=== PATIENT | female | born 1925 | race African-American/Black ===

== ENCOUNTER 2016-09-03 11:17 | Emergency (ER) | payer OTHER ==
[~2016-09-03] VITALS: Ht 170.2 cm; Wt 90.6 kg
[2016-09-03 11:36] VITALS: BP 120/67; PULSE 62; RESP 18; TEMP 98.6; O2SAT 100
[2016-09-03] MEDS ORDERED: SODIUM CHLORIDE 0.9% FLUSH 5 ML FLUSH IVF PRN (12:30)
--- NOTE | 2016-09-03 12:49 | PD ---
HPI . Tremors Chief Complaint: Numbness/Tingling Time Seen by Provider: 12:28 Travel History International Travel<30 days: No Contact w/Intl Traveler<30days: No Traveled to known affect area: No History of Present Illness HPI Patient presents with about a 10 minute history of tremors that occurred at breakfast time this morning. Her symptoms have completely resolved. She denies any associated symptoms. She denies any previous similar history. FORMERLY [facility], [facility] Past Medical History Cardiovascular Problems: Yes Diabetes: Yes Patient Takes Glucophage: No (UNKNOWN) Influenza Vaccination: Yes ?: Not Past Surgical History Surgical History: No Previous Surgery Social History Alcohol Use: No Tobacco Use: No Substance Use: No Allergies-Medications (Allergen,Severity, Reaction): Coded Allergies: No Known Allergies (Unverified , 09/03/16) Review of Systems Except as stated in HPI: all other systems reviewed are Neg General / Constitutional: No: Fever, Chills Eyes: No: Diploplia, Blurred Vision HENT: No: Headaches, Lightheadedness Cardiovascular: No: Chest Pain or Discomfort, Palpitations Respiratory: No: Shortness of Breath Gastrointestinal: No: Nausea, Vomiting Musculoskeletal: No: Weakness Neurologic: Positive: Tremor, No: Weakness, Dizziness, Syncope, Focal Abnormalities, Headache, Change in Mentation, Slurred Speech, Paresthesia, Incontinence, Seizures Physical Exam Narrative GENERAL: Healthy-appearing 89-year-old woman who is in no acute distress. SKIN: Warm and dry. HEAD: Atraumatic. Normocephalic. EYES: Pupils equal and round. ENT: No nasal bleeding or discharge. Mucous membranes pink and moist. NECK: Trachea midline. Neck supple. CARDIOVASCULAR: Regular rate and rhythm. Heart sounds are normal. RESPIRATORY: No accessory muscle use. Lungs are clear with full air movement throughout. GASTROINTESTINAL: Abdomen soft, non-tender, nondistended. MUSCULOSKELETAL: No obvious deformities. No edema. NEUROLOGICAL: Awake and alert. No obvious cranial nerve deficits. Motor grossly within normal limits. Normal speech. PSYCHIATRIC: Appropriate mood and affect; insight and judgment normal. Data Data Last Documented VS Vital Signs Date Time Temp Pulse Resp B/P Pulse Ox O2 Delivery O2 Flow Rate FiO2 09/03/16 13:51 18 94 Room Air 09/03/16 13:51 74 118/66 09/03/16 11:36 98.6 Orders Electrocardiogram (09/03/16 12:28) Complete Blood Count With Diff (09/03/16 12:28) Basic Metabolic Panel (Bmp) (09/03/16 12:28) Urinalysis - C+S If Indicated (09/03/16 12:28) Ct Brain W/O Iv Contrast(Rout) (09/03/16 12:28) Ecg Monitoring (09/03/16 12:28) Iv Access Insert/Monitor (09/03/16 12:28) Oximetry (09/03/16 12:28) Sodium Chloride 0.9% Flush (Ns Flush) (09/03/16 12:30) Labs Laboratory Tests Test 09/03/16 09/03/16 13:05 13:30 Urine Collection Type CATH Urine Color STRAW Urine Turbidity CLEAR Urine pH 5.5 Urine Specific Cres[place] 1.010 Urine Protein NEG mg/dL Urine Glucose (UA) NEG mg/dL Urine Ketones NEG mg/dL Urine Occult Blood NEG Urine Nitrite NEG Urine Bilirubin NEG Urine Leukocyte Esterase TRACE Urine WBC 0-2 /hpf Urine Squamous Epithelial 0-5 /hpf Cells Microscopic Urinalysis Comment CULT NOT INDICATED White Blood Count 3.9 TH/MM3 Red Blood Count 3.90 MIL/MM3 Hemoglobin 11.6 GM/DL Hematocrit 34.6 % Mean Corpuscular Volume 88.9 FL Mean Corpuscular Hemoglobin 29.7 PG Mean Corpuscular Hemoglobin 33.4 % Concent Red Cell Distribution Width 13.1 % Platelet Count 213 TH/MM3 Mean Platelet Volume 8.3 FL Neutrophils (%) (Auto) 48.3 % Lymphocytes (%) (Auto) 40.8 % Monocytes (%) (Auto) 6.2 % Eosinophils (%) (Auto) 2.8 % Basophils (%) (Auto) 1.9 % Neutrophils # (Auto) 1.9 TH/MM3 Lymphocytes # (Auto) 1.6 TH/MM3 Monocytes # (Auto) 0.2 TH/MM3 Eosinophils # (Auto) 0.1 TH/MM3 Basophils # (Auto) 0.1 TH/MM3 CBC Comment DIFF FINAL Differential Comment Sodium Level 141 MEQ/L Potassium Level 4.3 MEQ/L Chloride Level 108 MEQ/L Carbon Dioxide Level 24.7 MEQ/L Anion Gap 8 MEQ/L Blood Urea Nitrogen 26 MG/DL Creatinine 1.30 MG/DL Estimat Glomerular Filtration 47 ML/MIN Rate Random Glucose 84 MG/DL Calcium Level 9.3 MG/DL MDM Medical Decision Making Medical Screen Exam Complete: Yes Emergency Medical Condition: Yes Interpretation(s) EKG shows a sinus rhythm ventricular rate of 51. She has no old EKGs for comparison. Differential Diagnosis Differential diagnosis of weakness includes but is not limited to infection, CVA , electrolyte disturbance, renal failure, hypoglycemia, UTI, ACS, acute blood loss Narrative Course Patient presents for evaluation of an episode of tremors. The episode occurred several hours ago and is completely resolved. She had no associated symptoms. Her physical exam is unremarkable. CBC & BMP Diagram 09/03/16 13:[address] 09/03/16 1228 Signed Impressions: Service Date/Time: Saturday, September 03, 2016 13:31 - CONCLUSION: 1. No acute intracranial abnormality is identified. 2. Extra-axial ossification at the right frontal high convexity measuring 1.9 cm. This may represent a calcified meningioma. However, it is not causing any significant mass effect on the surrounding structures. Caleb Walsh MD UA is negative for infection Diagnosis Primary Impression: Tremor Patient Instructions: General Instructions, Tremors (DC) Disposition: 01 DISCHARGE HOME Condition: Stable Toshia Moran MD Sep 03, 2016 12:49
[2016-09-03 13:35] LABS: AUTOMATED NEUTROPHIL # 1.9 TH/MM3 (1.8-7.7); BASOPHIL # 0.1 TH/MM3 (0-0.2); BASOPHIL % 1.9 % (0.0-2.0); EOSINOPHIL # 0.1 TH/MM3 (0-0.4); EOSINOPHIL % 2.8 % (0.0-4.0); HEMATOCRIT 34.6 % (35.0-46.0); HEMO FLAGS DIFF FINAL; LYMPH % 40.8 % (9.0-44.0); LYMPHOCYTE # 1.6 TH/MM3 (1.0-4.8); MEAN CELL VOLUME 88.9 FL (80.0-100.0); MEAN CORPUSCULAR HEMOGLOBIN 29.7 PG (27.0-34.0); MEAN CORPUSCULAR HGB CONC 33.4 % (32.0-36.0); MONO % 6.2 % (0.0-8.0); NEUT % 48.3 % (16.0-70.0); PLATELET COUNT 213 TH/MM3 (150-450); RED CELL DISTRIBUTION WIDTH 13.1 % (11.6-17.2); WHITE BLOOD COUNT 3.9 TH/MM3 (4.0-11.0)
[2016-09-03 13:37] LABS: BLOOD, URINE NEG (NEG); GLUCOSE,URINE NEG (NEG); KETONE, URINE NEG (NEG); NITRITE,URINE NEG (NEG); PH, URINE 5.5 (5.0-8.5)
[2016-09-03 13:46] LABS: POTASSIUM 4.3 MEQ/L (3.5-5.1)
[2016-09-03 13:48] LABS: COMMENT (UR) CULT NOT INDICATED; CULTURE IF INDICATED CULT NOT INDICATED; METHOD OF COLLECTION CATH; SQUAMOUS EPITHELIAL CELL URINE 0-5 /hpf (0-5); URINE COLOR STRAW (YELLW/STRAW); WBC, URINE 0-2 /hpf (0-5)
--- NOTE | 2016-09-03 13:49 | RADHPO ---
EXAM DATE/TIME: 09/03/2016 13:31 [facility] COMPARISON: No previous studies available for comparison. INDICATIONS : Tremors. RADIATION DOSE: 64.28 CTDIvol (mGy) MEDICAL HISTORY : Cardiovascular disease. Diabetes. SURGICAL HISTORY : None. ENCOUNTER: Initial ACUITY: 1 day PAIN SCALE: 0/10 LOCATION: cranial TECHNIQUE: Multiple contiguous axial images were obtained of the head. Using automated exposure control and adj ustment of the mA and/or kV according to patient size, radiation dose was kept as low as reasonably a chievable to obtain optimal diagnostic quality images. FINDINGS: CEREBRUM: There is mild cerebral atrophy. Ventricles are normal in size. There is an extra-axial ossified struc ture along the right frontal high convexity measuring 1.9 x 1.0 cm. As no significant mass effect on the adjacent structures. There is also ossification along the anterior falx cerebri. No evidence of midline shift, mass lesion, hemorrhage or acute infarction. No extra-axial fluid collections are see n. POSTERIOR FOSSA: The cerebellum and brainstem demonstrate no acute finding. The 4th ventricle is midline. The cerebe llopontine angle is unremarkable. EXTRACRANIAL: Visualized sinuses are clear. SKULL: The calvaria is intact. No evidence of skull fracture. CONCLUSION: 1. No acute intracranial abnormality is identified. 2. Extra-axial ossification at the right frontal high convexity measuring 1.9 cm. This may represent a calcified meningioma. However, it is not causing any significant mass effect on the surrounding str uctures. Caleb Walsh MD on September 03, 2016 at 13:44 Board Certified Radiologist. This report was verified electronically.
[2016-09-03 13:50] LABS: BICARBONATE 24.7 MEQ/L (21.0-32.0)
[2016-09-03 13:51] VITALS: BP 118/66; PULSE 74; RESP 18; O2SAT 94
--- NOTE | 2016-09-04 18:49 | EKG ---
Date Performed: 09/03/2016 Time Performed: 12:50:10 PTAGE: 89 years EKG: Sinus bradycardia. Possible septal infarct - age undetermined Abnormal ECG NO PREVIOUS TRACING DOCTOR: Estrada Fish Interpretating Date/Time 09/04/2016 18:43:27
== END 2016-09-03 14:21 | disposition home or self-care (01) ==
LOC: PHED 11:17
DX: R25.1 Tremor, unspecified (principal); E11.9 Type 2 diabetes mellitus without complications
CPT/HCPCS: 70450; 80048; 81001; 85025; 93005

== ENCOUNTER 2017-01-26 15:34 | Emergency (ER) | payer OTHER ==
[~2017-01-26] VITALS: Ht 170.2 cm; Wt 82.6 kg
[2017-01-26 15:36] VITALS: BP 128/66; PULSE 71; RESP 20; TEMP 98.7; O2SAT 98
[2017-01-26] MEDS ORDERED: GLIM4TAB PO (15:50)
[2017-01-26] MEDS ORDERED: LISI10TA3 PO (15:50)
[2017-01-26] MEDS ORDERED: ALLO300T2 PO (15:50)
[2017-01-26] MEDS ORDERED: AMOX500T PO (15:59)
[2017-01-26] MEDS ORDERED: CLAR10CA3 PO (15:59)
--- NOTE | 2017-01-26 16:01 | PD ---
HPI Chief Complaint: Cold / Flu Symptoms Time Seen by Provider: 15:50 Travel History International Travel<30 days: No Contact w/Intl Traveler<30days: No Traveled to known affect area: No History of Present Illness HPI 89-year-old female presents to the emergency room for evaluation of runny nose, sore throat, and itchy eyes for the past 4 days. Patient symptoms started the day she got back from an [employer] cruise. Patient also recently traveled through an airport. States she was feeling sluggish right after getting home from vacation but feels better now. Sore throat is constant, worse with swallowing. She has not taken anything or done anything for her symptoms. She denies fever, chills, cough, congestion, nausea, and vomiting. Only history of hypertension and diabetes. PFSH Past Medical History Cardiovascular Problems: Yes Diabetes: Yes Patient Takes Glucophage: Yes Diminished Hearing: No Gout: Yes Hypertension: Yes Tetanus Vaccination: < 5 Years Influenza Vaccination: Yes ?: Not Past Surgical History Surgical History: No Previous Surgery Social History Alcohol Use: No Tobacco Use: No Substance Use: No Allergies-Medications (Allergen,Severity, Reaction): Coded Allergies: No Known Allergies (Unverified , 01/26/17) Reported Meds & Prescriptions Reported Meds & Active Scripts Active Claritin (Loratadine) 10 Mg Cap 10 Mg PO DAILY 14 Days Amoxicillin 500 Mg Tab 500 Mg PO BID 10 Days Reported Allopurinol 300 Mg Tab 300 Mg PO DAILY Glimepiride 4 Mg Tab 4 Mg PO DAILY Take with breakfast or first main meal Lisinopril 10 Mg Tab 10 Mg PO DAILY Review of Systems Except as stated in HPI: all other systems reviewed are Neg Physical Exam Narrative GENERAL: Well-nourished, well-developed female in no acute distress. Afebrile. Ambulatory. SKIN: Focused skin assessment warm/dry. HEAD: Normocephalic. No sinus tenderness. EYES: No scleral icterus. No injection or drainage. ENT: Mucosa pink and moist. Moderate erythema without exudates. No uvular edema. No uvular, palatal, or tonsillar deviation. Airway patent. Nasal turbinates appear normal without nasal blood, purulent drainage or septal hematoma. EARS: Bilateral pinnae and external canals appear within normal limits. Slight cerumen impaction. Bilateral tympanic membranes without erythema, dullness or perforation. NECK: Supple, trachea midline. No JVD or lymphadenopathy. CARDIOVASCULAR: Regular rate and rhythm without murmurs, gallops, or rubs. RESPIRATORY: Breath sounds equal bilaterally. No accessory muscle use. No crackles, rales, wheezes, or rhonchi. Data Data Last Documented VS Vital Signs Date Time Temp Pulse Resp B/P Pulse Ox O2 Delivery O2 Flow Rate FiO2 01/26/17 15:56 20 01/26/17 15:36 98.7 71 128/66 98 MDM Medical Decision Making Medical Screen Exam Complete: Yes Emergency Medical Condition: Yes Medical Record Reviewed: Yes Differential Diagnosis URI, allergies, streptococcal pharyngitis Narrative Course 89-year-old female appearing younger than her stated age presents to the emergency room for evaluation of sore throat, rhinorrhea, and itchy eyes for the past 3 days. Symptoms started after getting home from an [facility] cruise. Physical exam reveals moderate erythema of the pharynx without exudates or edema but is otherwise unremarkable. Given her overall well-appearance and perfectly stable vital signs, this is likely viral upper respiratory infection, readjustment from [facility] weather to [place] weather, or allergies. More likely viral since patient was just in densely populated areas. She'll be treated conservatively with Claritin and discharged with prescription for amoxicillin. Patient was told to start antibiotics if she develops fever, worsening symptoms, or if symptoms do not subside within a few days. She is told to follow-up with her primary care physician. She understands and agrees to plan. Diagnosis Primary Impression: Viral upper respiratory infection Referrals: Primary Care Physician Patient Instructions: General Instructions, Upper Respiratory Infection (ED) Additional Instructions: Rest and drink plenty of fluids. Claritin as directed. If symptoms persist greater than 3 days, start and finish amoxicillin. Follow-up with a primary care physician. Return to the emergency room for worsening symptoms. Med/Other Pt SpecificInfo: Prescription(s) given Scripts Loratadine (Claritin)10 Mg Cap10 Mg PO DAILY 14 Days Ref 0 Prov:Satish Brown MD 01/26/17 Amoxicillin 500 Mg [id number] Mg PO BID 10 Days Ref 0 Prov:Satish Brown MD 01/26/17 Disposition: 01 DISCHARGE HOME Condition: Stable Radha Rodriguez Jan 26, 2017 16:01
== END 2017-01-26 16:27 | disposition home or self-care (01) ==
LOC: PHEFT 15:34
DX: J06.9 Acute upper respiratory infection, unspecified (principal)
CPT/HCPCS: 99284